=== PATIENT | female | born 1930 | race Caucasian/White ===

== ENCOUNTER 2019-03-03 10:54 | Inpatient (IN) | payer MEDICARE, OTHER ==
[2019-03-03] MEDS ORDERED: Morphine 2 MG/ML SYRINGE SLOW IVP PRN (12:07)
[2019-03-03] MEDS ORDERED: HumaLOG 300 UNITS/3 ML VIAL SC PRN (12:07)
[2019-03-03] MEDS ORDERED: Dextrose 50% Abboject 50 ML SYRINGE SLOW IVP PRN (12:07)
[2019-03-03] MEDS ORDERED: Dextrose 5% in Water 1,000 ML IV PRN (12:07)
[2019-03-03] MEDS ORDERED: Ondansetron PF 4 MG/2 ML Vial IVP PRN (12:07)
[2019-03-03] MEDS ORDERED: hydrALAZINE 20 MG/ML VIAL SLOW IVP PRN (12:07)
[2019-03-03] MEDS ORDERED: traMADol HCl 50 MG TAB PO PRN ×2 (12:11)
--- NOTE | 2019-03-03 12:20 | CT ---
EXAM: CT of the cervical spine without contrast HISTORY: Subdural hemorrhage intracranially. Head trauma with neck pain. COMPARISON: None TECHNIQUE: Multiple contiguous axial images were obtained in a CT of the cervical spine without contr ast. Sagittal and coronal reformats were performed. FINDINGS: Moderate degenerative changes are seen throughout the cervical spine with intervertebral di sc space narrowing and osteophyte formation. There has been fusion of the C4 and C5 vertebral bodies. These vertebral bodies are slightly retrodisplaced when compared with the rest of the cervica l spine, likely secondary to the degenerative change. No prevertebral soft tissue swelling is seen. The posterior facets are well aligned. Normal alignment of the skull base with the cervical spine is seen. The lung apices are unremarkable. Calcifications are seen in the carotid arteries. IMPRESSION: Degenerative changes without evidence of acute osseous abnormality of the cervical spine.
--- NOTE | 2019-03-03 13:00 | HP ---
TRAUMA SURGEON: Tani Garrido MD CONSULTING PHYSICIAN: Albin Roth MD HISTORY OF PRESENT ILLNESS: The patient is an 88-year-old female, who presented to the emergency department at outside hospital after a mechanical fall from standing. This morning, the patient reported her right leg gave out, which happens quite frequently. She uses a walker. She reports falling and hitting her head. She has about a 3 cm laceration to her left posterior scalp. Upon evaluation in the emergency department, it was found that she has a small left tentorial subdural hematoma and a small head laceration. She was transferred to [facility] and Trauma Team evaluated the patient. Neurosurgery has also been consulted. At the time of my evaluation, the patient's GCS was 15. Denies anticoagulation use. Reports previous anticoagulation use but has stopped over a month ago. She has no focal neurological deficits. Pupils are equal, round, and reactive to light bilaterally. She denies numbness and tingling in arms or legs. Reports she was feeling fine before the fall. REVIEW OF SYSTEMS: All additional 10-point review of systems negative except as indicated above. PAST MEDICAL HISTORY: The patient is a very poor historian, but does remember that she has hypertension and diabetes. Chart review showed aortic valve replacement , CABG x1, RA, Gout, and A.fib. PAST SURGICAL HISTORY: Right femur fracture surgery, bilateral knee replacements, Aortic valve replacement, CABG x1. SOCIAL HISTORY: The patient lives at home and uses a walker. She drinks alcohol occasionally. Denies tobacco or drug use. MEDICATIONS: The patient does not remember any of her medications except the Lasix. She reports her daughter helps her with her medications. She uses [facility] in [place]. ALLERGIES: CODEINE AND ANOTHER MEDICATION SHE CANNOT REMEMBER. PHYSICAL EXAMINATION: VITAL SIGNS: Temperature 98.5, pulse 74, respirations 15, oxygen saturation 98 % on room air, and blood pressure 148/99. PRIMARY SURVEY: Airway intact. Adequate breath sounds bilaterally. 2+ pulses in bilateral radials, femorals, and DPs. GCS 15. Gross motor and sensation are intact. A 3 cm laceration to the left posterior scalp. No bruising or external bleeding. SECONDARY SURVEY: HEAD: Normocephalic. No gross palpable skull deformities or tenderness. There is a left posterior scalp laceration measuring about 3 cm. EYES: Pupils 3-2, equal, round, and reactive to light bilaterally. ENT: No hemotympanum. No epistaxis. No septal hematoma. Midface stable to manipulation. No blood in the oropharynx. Dentition is intact. No anterior neck injury/crepitus/tenderness. C-SPINE: No step-offs or deformities. Nontender. C-collar not in place. CHEST: No crepitus. Nontender. No abrasions or ecchymosis. Equal chest motion. ABDOMEN: Soft, nontender, and nondistended. PELVIS: Stable to palpation. Nontender. No abrasions or ecchymosis. RECTAL: Deferred. GENITOURINARY: Deferred. EXTREMITIES: No gross deformities. No abrasions or ecchymosis noted. 2+ pulses present bilaterally. BACK/SPINE: No step-offs, deformities, or tenderness to palpation of the thoracic or lumbar spine. No abrasions or ecchymosis noted. NEUROLOGIC: 5/5 strength in the bilateral content developer, plantar flexion, dorsiflexion. Gross normal sensation x4 extremities. LABORATORY FINDINGS: White count 6.5, hemoglobin 12.9, hematocrit 40.6, and platelets 133. INR 1.2. Sodium 144, potassium 4.0, chloride 110, bicarb 24, BUN 20, creatinine 1.01, and glucose 142. DIAGNOSTIC FINDINGS: CT of the brain completed this morning at 9:00 a.m. demonstrates small left tentorial subarachnoid hemorrhage. ASSESSMENT: 1. Status post mechanical fall from standing. 2. Small left tentorial subdural hemorrhage. 3. A 3 cm laceration to the left posterior scalp, status post stefan. 4. History of diabetes and hypertension. 5. The patient is a poor historian. PLAN: The patient will be admitted to the [facility] with q.1 hour neuro checks. Repeat head CT at 6:00 a.m. tomorrow per Neurosurgery recommendation. Neurosurgery has been following the consult and will see the patient. She will have a clear liquid diet and be n.p.o. after midnight per Neurosurgery request. Head of the bed elevated at 30 degrees. Goal systolic blood pressure less than 160. To be seen by PT/OT and Speech. The patient is to perform a cognitive evaluation. We will restart her home medications as clinically indicated after nursing is able to complete a med rec from [facility]. We will await on evaluation by PT/ OT and Speech to determine if the patient may need a short stent and inpatient rehab, but she will probably be able to go home if her condition remains stable. This patient was discussed with Dr. Garrido before this dictation. Job ID: [id number] MTDD
[2019-03-03 14:26] LABS: Bilirubin Negative (Negative); Blood, Urine 2+ (Negative); Clarity Clear (Clear); Glucose, Urine (Dipstick) Normal (Negative); Leukocyte 500 Leu/uL (Negative); Nitrite 2+ (Negative); Protein, Urine (Dipstick) 10 mg/dL (Neg-Trace); Squamous Epithelial 0-3 HPF (0-3); Urobilinogen Normal mg/dL (Less than 2); WBC/HPF Greater than 50 HPF (0-3)
[2019-03-03 14:36] LABS: Bacteria/HPF 2+ HPF (None Seen)
[2019-03-03] MEDS: Acetaminophen 500 MG TAB PO SCH ×2 (14:58→18:03)
[2019-03-03 15:10] VITALS: BMI 29.6
[2019-03-03] MEDS: Cipro 250 MG TAB PO SCH (20:23)
[2019-03-03] MEDS: Senokot S 8.6-50 MG TAB PO SCH (20:23)
[2019-03-03] MEDS: Metoprolol Tartrate 50 MG TAB PO SCH (20:24)
[2019-03-03] MEDS ORDERED: Famotidine/PF 20 mg/2ml Vial SLOW IVP SCH (21:00)
--- NOTE | 2019-03-03 22:21 | PRG ---
DATE OF SERVICE: 03/03/2019 SUBJECTIVE: The patient was seen this evening during the evening rounds. The patient remains in the intermediate care unit. The patient is currently awake and alert, in no distress. The patient was admitted earlier today after falling and hitting her head. The patient reports some mild pain to the back of her head where her stefan are in place. The patient denies any nausea or vomiting at this time. The patient is tolerating a clear liquid diet currently. OBJECTIVE: VITAL SIGNS: Stable, afebrile. GENERAL: Elderly female, awake and alert, in no distress. RESPIRATORY: Equal chest rise and fall, bilateral breath sounds clear. CARDIAC: Regular rate, regular rhythm, systolic murmur. EXTREMITIES: Moves all extremities, strength 5/5 in all extremities. NEUROLOGIC: No focal deficits, GCS is 15. ASSESSMENT: 1. Status post mechanical fall from standing. 2. Small left tentorial subdural hemorrhage. 3. 3 cm laceration to the left posterior scalp, status post repair with stefan. 4. History of diabetes and hypertension. PLAN: Continue q.1 hour neuro checks. Neurosurgery plans to repeat a head CT in the morning. Neurosurgery also recommends n.p.o. diet after midnight. We will keep the patient's head of bed at 30 degrees. The plan was discussed with the patient who agrees. Job ID: [id number]
[2019-03-04] MEDS: Acetaminophen 500 MG TAB PO SCH ×4 (02:18→18:35)
[2019-03-04 04:23] LABS: Anion Gap 12 mmol/L (10-20); BUN (Urea Nitrogen) 15 mg/dL (9.8-20.1); Calc. Creatinine Clearance 48 mL/min (70-130); Carbon Dioxide 24 mmol/L (23-31); Chloride 112 mmol/L (98-107); Estimated GFR-MDRD 55; Glucose 105 mg/dL (83-110); Magnesium 1.7 mg/dL (1.6-2.6); Phosphorus 3.3 mg/dL (2.3-4.7); Potassium 3.9 mmol/L (3.5-5.1); Sodium 144 mmol/L (136-145)
[2019-03-04 04:47] LABS: #Eosinphils 0.1 thou/uL (0.0-0.7); #Monocytes 0.8 thou/uL (0.11-0.59); #Neutrophils 4.1 thou/uL (1.40-6.50); %Basophils 0.7 % (0.0-1.0); %Eosinophils 1.6 % (0.0-10.0); %Lymphocytes 16.1 % (21.0-51.0); %Monocytes 13.8 % (0.0-10.0); %Neutrophils 67.8 % (42.0-75.0); Hemoglobin 12.4 g/dL (12.0-16.0); Mean Corpuscular HGB CONC 33.4 g/dL (32.0-36.0); Mean Corpuscular Hemoglobin 30.3 pg (27.0-31.0); Mean Corpuscular Volume 90.9 fL (78.0-98.0); Mean Platelet Volume 10.7 fL (7.4-10.4); Platelet Count 113 thou/uL (130-400); Platelet Morphology Comment Appears Decreased; RBC Distribution Width 13.3 % (11.5-14.5); Red Blood Cell (RBC) Count 4.09 mill/uL (4.20-5.40); White Blood Cell (WBC) Count 6.1 thou/uL (4.8-10.8)
[2019-03-04] MEDS: Cipro 250 MG TAB PO SCH ×2 (05:43→20:50)
[2019-03-04] MEDS ORDERED: PHOS-NAK 1 PKT PACK PO SCH (07:45)
[2019-03-04] MEDS ORDERED: Magnesium 2 GM/50 ML 2 GM in Premix Bag 1 BAG IVPB SCH (08:00)
--- NOTE | 2019-03-04 08:10 | CT ---
PRELIMINARY REPORT/[facility]/AFTER HOURS PROCEDURE CT HEAD WITHOUT INTRAVENOUS CONTRAST: CLINICAL HISTORY: F/U [facility] TECHNIQUE: Axial computed tomography images of the head/brain without intravenous contrast. COMPARISON: Prior CT dated 03/03/2019. FINDINGS: BRAIN: No acute intraparenchymal hemorrhage. No mass lesion. No CT evidence for acute territorial inf arct. Hyperdensity seen along the left tentorium which may represent a subdural hematoma. Hypodensity of the white matter likely represents chronic microvascular ischemic disease. VENTRICLES: No hydrocephalus. ORBITS: The orbits are unremarkable. SINUSES AND MASTOIDS: The paranasal sinuses and mastoid air cells are clear. SOFT TISSUES: Surgical stefan again seen along the left parietal scalp. BONES: No acute skull fracture. IMPRESSION: Hyperdensity seen along the left tentorium likely represents a subdural hematoma which is unchanged i n appearance compared to prior study of 03/03/2019. ELECTRONICALLY SIGNED BY: Mel Dave MD Mar 04, 2019 6:01:55 AM [facility] This report is intended for review by the ordering physician only, in accordance of law. If you recei ve this report in error, please call [facility] at [phone]. FINAL REPORT CT BRAIN WITHOUT CONTRAST: I agree with the preliminary report given by Dr. Mel Vargas of [facility]. CODE QA POS: [facility]
[2019-03-04] MEDS: Senokot S 8.6-50 MG TAB PO SCH ×2 (09:22→21:01)
[2019-03-04] MEDS: Polyethylene Glycol 3350 17 GM Packet PO SCH (09:22)
[2019-03-04] MEDS: Metoprolol Tartrate 50 MG TAB PO SCH ×2 (09:23→20:50)
[2019-03-04] MEDS: Lisinopril 20 MG TAB PO SCH (09:23)
[2019-03-04] MEDS: Furosemide 20 MG TAB PO SCH (09:23)
--- NOTE | 2019-03-04 10:54 | PRG ---
DATE OF SERVICE: 03/04/2019 This is a 30-minute initial hospital visit note, in which 30 minutes were spent reviewing the imaging record, evaluation, and examination of patient, and formulation of plan. Greater than 50% time was spent in counseling on Ms. Hines. Ms. Hines is a very pleasant 88-year-old woman who takes a baby aspirin and is also on fish oil. She . She lives at home alone in [place]. She states she is very careful when she ambulates with a rolling walker. She also endorses right arm pain and right leg pain consistent with sciatica and the right arm pain is somewhat nonspecific. Her head CT demonstrates non-worrisome tentorial acute subdural hematoma. This is stable on repeat imaging. We will start to mobilize her and while she is neurologically intact, I would like to see her in 1 month with a repeat head CT. I will also order cervical, thoracic, and lumbar spine MRIs without contrast given some of the ailment she has had in regard to pain into her extremities and difficulty with ambulation. DIAGNOSES: 1. Tentorial acute subdural hematoma. 2. Neck pain with gait dysfunction. 3. Low back and leg. Job ID: [id number]
--- NOTE | 2019-03-04 13:55 | PRG ---
DATE OF SERVICE: 03/04/2019 SUBJECTIVE: The patient was seen this morning sitting up in bed with no signs of acute distress. Overnight, she had no acute events, and her GCS remains 15. Son at bedside reported the patient has not gotten up out of bed yet. She is going to be working with PT and OT today for assessment of mobility and safety for discharge. Repeat head CT was completed today, demonstrated no change in subdural hematoma. The patient reports her pain is well controlled, tolerating a diabetic diet. OBJECTIVE: VITAL SIGNS: Temperature 98.4, pulse 74, respirations 17, oxygen saturation 100% on room air, blood pressure 154/66. GENERAL: Well-appearing elderly female, sitting up in bed with no signs of acute distress. PULMONARY: Equal chest rise and fall. Clear breath sounds bilaterally. No signs of acute respiratory distress. CARDIAC: Regular rate and rhythm. No murmurs, gallops, or rubs. GI: Abdomen is soft, nontender, and nondistended. EXTREMITIES: 2+ pulses in all extremities. Gross motor and sensation are intact. No significant swelling noted. NEUROLOGIC: GCS is 15. Pupils are equal, round, and reactive to light. No focal neurological deficits. LABORATORY FINDINGS: White count 6.1, hemoglobin 12.4, hematocrit 37.2, platelets 113. Sodium 144, potassium 3.9, chloride 112, bicarb 24, BUN 15, creatinine 0.96, glucose 105, phosphorus 3.3, magnesium 1.7. DIAGNOSTIC FINDINGS: Repeat CT scan of the brain demonstrates hyperdensity seen along the left tentorium, likely represents a subdural hematoma, which is unchanged and present compared to prior study on 03/03/2019. ASSESSMENT: 1. Status post mechanical fall from standing. 2. Small left tentorial subdural hematoma. 3. Small left head laceration, status post staple. 4. Urinary tract infection. 5. History of hypertension, diabetes, aortic valve replacement, coronary artery bypass grafting, rheumatoid arthritis, gout, and atrial fibrillation. PLAN: Continue diet. The patient was seen by Physical and Occupational Therapy. Recommended a short stay in rehab. A rehab screen has been submitted. Repeat head CT completed today demonstrated no change, and the patient's mentation remains at baseline. She will receive magnesium and phosphorus replacements today. Dr. Roth of Neurosurgery recommended followup CT head in 1 month as well as MRI of the C , T, and L spine as the patient has been reporting persistent right upper and right lower extremity pain since before her fall. There are no neurological deficits on my evaluation. We have restarted the patient's home medications as clinically indicated. We will hold Krill oil and aspirin at this time. Follow up urine cultures and continue Cipro in the meantime. We will hold chemo DVT prophylaxis due to the patient's traumatic brain injury. Job ID: [id number] MTDD
--- NOTE | 2019-03-04 22:55 | PRG ---
DATE OF SERVICE: 03/04/2019 SUBJECTIVE: The patient was seen during evening rounds awake, alert, lying in hospital bed, watching TV. The patient reports no complaints at this time. The patient's GCS remains at 15. The patient's urine culture preliminary results show presumptive Pseudomonas. The patient continues to be on Cipro at this time for her UTI. OBJECTIVE: VITAL SIGNS: Stable, afebrile. GENERAL: Well-appearing elderly female, lying in hospital bed, in no acute distress. PULMONARY: Equal chest rise and fall, breath sounds are clear, no distress. EXTREMITIES: Moves all extremities, no focal deficits, strength 5/5. ASSESSMENT: 1. Status post mechanical fall from standing. 2. Small left tentorial subdural hematoma, stable. 3. Small left head laceration status post stefan. 4. Urinary tract infection on admission. 5. History of hypertension, diabetes, aortic valve replacement, coronary artery bypass graft, rheumatoid arthritis, gout, and atrial fibrillation. PLAN: Continue supportive care. Continue regular diet as tolerated. We will continue to have Physical and Occupational Therapy work with the patient. Urine culture pending final results and sensitivities. We will adjust antibiotics as needed. We will continue to hold patient's krill oil and aspirin at this time per Neurosurgery. We will continue mechanical DVT prophylaxis with SCDs. The patient is pending placement to rehab. The plan was discussed with the patient and family who agrees. Job ID: [id number]
[2019-03-05] MEDS: Acetaminophen 500 MG TAB PO SCH ×3 (01:41→13:49)
[2019-03-05] MEDS: Cipro 250 MG TAB PO SCH (06:17)
[2019-03-05] MEDS: Lisinopril 20 MG TAB PO SCH (09:31)
[2019-03-05] MEDS: Furosemide 20 MG TAB PO SCH (09:31)
[2019-03-05] MEDS: Polyethylene Glycol 3350 17 GM Packet PO SCH (09:32)
[2019-03-05] MEDS: Senokot S 8.6-50 MG TAB PO SCH (09:32)
[2019-03-05] MEDS: Metoprolol Tartrate 50 MG TAB PO SCH (09:32)
[2019-03-05 11:10] VITALS: TEMP 97.6
--- NOTE | 2019-03-05 12:28 | PRG ---
DATE OF SERVICE: SUBJECTIVE: The patient was seen this morning sitting up at the edge of bed. She reported she slept well overnight and her pain is well controlled. Her only request was to wash her hair. She continues to work with Physical and Occupational Therapy, and is pending placement at acute rehab facility. OBJECTIVE: VITAL SIGNS: Temperature 97.6, pulse 79, respirations 18, oxygen saturation 98% on room air, and blood pressure 162/77. GENERAL: Well-appearing elderly female, sitting up at edge of bed with no signs of acute distress. PULMONARY: Equal chest rise and fall. Clear breath sounds bilaterally. No signs of acute respiratory distress. CARDIAC: Regular rate and rhythm. No murmurs, gallops or rubs. GI: Abdomen is soft, nontender, and nondistended. EXTREMITIES: 2+ pulses in all extremities. Gross motor and sensation intact. No significant swelling noted. NEUROLOGIC: GCS is 15. Pupils equal, round, reactive to light bilaterally. SKIN: There is a 3-cm laceration to the left posterior scalp with stefan in place. Wound is clean, dry, and intact. LABORATORY FINDINGS: There are no new laboratory findings to discuss. DIAGNOSTIC FINDINGS: There are no new diagnostic findings to discuss. ASSESSMENT: Status post mechanical fall from standing. 1. Small left tentorial subdural hematoma, stable. 2. Small left-sided head laceration, status post stefan. 3. Urinary tract infection, Pseudomonas, currently being treated with Cipro. 4. History of hypertension, diabetes, aortic valve replacement, coronary artery bypass graft, rheumatoid arthritis, gout, and atrial fibrillation. PLAN: The patient is to be transferred yesterday to the regular surgical floor; however, there are no beds available and as such she has remained in the [facility]. Her mentation has been at baseline. Her son reports that the patient was mildly delirious yesterday, but that seems to have resolved today. We will continue to work with PT and OT as well as encouraging sleep at night and increasing sun light in the room today. Sensitivities have come back for the patient's UTI and it is sensitive to Cipro. We will continue those medications. Continue all home medications, but will hold aspirin and krill oil. She is pending placement at acute rehab facility and she is amenable. All questions were answered. We are pending approval from insurance and she is ready for discharge at this time. Job ID: [id number] [facility]
--- NOTE | 2019-03-05 16:24 | DIS ---
DATE OF ADMISSION: 03/03/2019 DATE OF DISCHARGE: 03/05/2019 ADMISSION DIAGNOSES: 1. Mechanical fall from standing. 2. Small left tentorial subdural hematoma. 3. Small left-sided head laceration. 4. Urinary tract infection. DISCHARGE DIAGNOSES: 1. Mechanical fall from standing. 2. Small left tentorial subdural hematoma. 3. Small left-sided head laceration. 4. Urinary tract infection. CONSULTING PHYSICIAN: Dr. Roth of Neurosurgery. PROCEDURES: None. HOSPITAL COURSE: The patient is an 88-year-old female, presented to the emergency department and was found to have a small left tentorial subdural hematoma, head laceration, and UTI after mechanical fall at home. She was admitted to the [facility] and received a repeat head CT in the morning, which demonstrated no change in her traumatic brain injury. The patient had a GCS of 15 upon arrival and maintained a GCS of 15 throughout her stay. The patient's family reported some concerns that she was not able to care for herself well at home anymore. She was evaluated by Physical and Occupational Therapy and they recommended short-term stay at acute rehab facility. The patient was amenable to that. Her aspirin and Krill oil will help and she was told to follow up with Dr. Roth with repeat head CT as well as MRI of C, T, and L-spine due to persistent right upper and lower extremity pain and weakness. The pain and weakness are not new and has been occurring long since the fall. DISCHARGE DISPOSITION: Acute rehab. DISCHARGE CONDITION: Satisfactory. PHYSICAL EXAMINATION: VITAL SIGNS: Temperature 97.6, pulse 65, respirations 16, oxygen saturation 98% on room air, blood pressure 167/77. GENERAL: Well-appearing elderly female, sitting up at the edge of the bed with no signs of acute distress. PULMONARY: Equal chest rise and fall, clear breath sounds bilaterally. No signs of acute respiratory distress. CARDIAC: Regular rate and rhythm. No murmurs, gallops, or rubs. GASTROINTESTINAL: Soft, nontender, nondistended. EXTREMITIES: 2+ pulses in all extremities. Gross motor and sensation intact. No significant swelling noted. NEUROLOGIC: GCS is 15. Pupils equal, round, reactive to light bilaterally. Equal strength in the bilateral upper and lower extremities. SKIN: There is about a 3 cm laceration to the left lateral scalp with stefan that are in place. Wound is clean, dry, and intact. DISCHARGE INSTRUCTIONS: The patient is discharged to acute rehab facility. Activity as tolerated, diabetic diet. She will be seen by Occupational and Physical Therapy as well as Speech Language pathology for cognitive work. She will have a walker and incentive spirometry. DISCHARGE MEDICATIONS: Tylenol, Cipro for two additional days, Lasix, lisinopril, metoprolol, MiraLAX, Senokot S, tramadol. FOLLOWUP APPOINTMENTS: The patient is to follow up with Dr. Roth in 1 month. She is to complete a CT of the brain and MRI of the CT and L-spine before that appointment. No need for followup with Trauma Surgery. This is a summary of the patient's hospitalization. For full details, please see her medical record in its entirety. Job ID: [id number]
[2019-03-05 17:50] VITALS: BP 135/80
== END 2019-03-05 18:09 | DRG 86 ==
LOC: ERS 10:54 → IMCU/EMU 11:41
PROVIDERS: ADMIT Specialist; ATTEND Specialist
DX: S06.5X0A Traumatic subdural hemorrhage without loss of consciousness, initial encounter (principal); N39.0 Urinary tract infection, site not specified; S01.01XA Laceration without foreign body of scalp, initial encounter; W18.30XA Fall on same level, unspecified, initial encounter; M19.90 Unspecified osteoarthritis, unspecified site; M54.2 Cervicalgia; M54.5 Low back pain; M06.9 Rheumatoid arthritis, unspecified; B96.5 Pseudomonas (aeruginosa) (mallei) (pseudomallei) as the cause of diseases classified elsewhere; I10 Essential (primary) hypertension; M10.9 Gout, unspecified; I48.91 Unspecified atrial fibrillation; E11.9 Type 2 diabetes mellitus without complications; Z95.1 Presence of aortocoronary bypass graft; Y92.012 Bathroom of single-family (private) house as the place of occurrence of the external cause; Z88.5 Allergy status to narcotic agent; Z88.2 Allergy status to sulfonamides; Z95.4 Presence of other heart-valve replacement; Z79.82 Long term (current) use of aspirin; Z79.84 Long term (current) use of oral hypoglycemic drugs; Z79.899 Other long term (current) drug therapy
CPT/HCPCS: 36415; 36416; 70450; 72125; 80048; 81003; 81015; 83735; 84100; 85025; 87077; 87086; 87186; G0390; J0360; J3475; S0028